=== PATIENT | female | born 1950 | race Caucasian/White ===

== ENCOUNTER 2018-05-20 16:47 | Emergency (ER) | payer MEDICARE, BC ==
[~2018-05-20] VITALS: Ht 175.3 cm; Wt 69.4 kg
[2018-05-20 18:18] VITALS: BP 127/79
== END 2018-05-20 18:32 | disposition home or self-care (01) ==
LOC: FSED 16:47
DX: R30.0 Dysuria (principal); N30.91 Cystitis, unspecified with hematuria; N23 Unspecified renal colic
CPT/HCPCS: 74176; 80053; 81003; 85025; 87040; 87086; 87186; 99284

== ENCOUNTER 2018-11-12 13:15 | Emergency (ER) | payer MEDICARE ==
[~2018-11-12] VITALS: Ht 175.3 cm; Wt 68.9 kg
--- OUTSIDE RECORDS SUMMARY | 2018-11-12 13:19 | XMS REPORT | Clinical Summary ---
Author Author [employer] Organization [employer] Address Unknown Phone Unavailable Care Team Providers Care Toy Stuffer Name Role Phone Asked, No Pcp PCP Unavailable Allergies No Known Allergies Medications End Date Status Medication Sig Dispensed Refills Start Date Active aspirin (ECOTRIN) 81 MG Take 81 mg by 0 enteric coated tablet mouth daily. Active Problems Problem Noted Date Chest pain at rest 06/29/2018 Encounters Care Team Description Date Type Specialty Anne Gandhi MA 07/04/2018 Telephone Internal Medicine Js Larson 06/30/2018 Orders Only Procedural Cardiology Anthony Ellis MD Janjua, Ejaz, Chest pain at rest (Primary Dx) 06/29/2018 Emergency General Internal Medicine - 06/30/2018 after 11/11/2017 Family History Medical History Relation Name Comments Liver cancer Father Relation Name Status Comments Father Social History Date Tobacco Use Types Packs/Day Years Used Never Smoker Smokeless Tobacco: Never Used Alcohol Use Drinks/Week oz/Week Comments No Sex Assigned at Date Recorded Not on file Industry Job Start Date Occupation Not on file Not on file Not on file Travel End Travel History Travel Start No recent travel history available. Last Filed Vital Signs Time Taken Vital Sign Reading 06/30/2018 12:45 PM CDT Blood Pressure 100/56 06/30/2018 12:45 PM CDT Pulse 87 06/30/2018 12:45 PM CDT Temperature 35.2 C (95.3 F) 06/30/2018 12:45 PM CDT Respiratory Rate 16 06/30/2018 12:45 PM CDT Oxygen Saturation 95% - Inhaled Oxygen - Concentration 06/30/2018 7:49 AM CDT Weight 67.1 kg (148 lb) 06/30/2018 7:49 AM CDT Height 175.3 cm (5' 9") 06/30/2018 7:49 AM CDT Body Mass Index 21.86 Plan of Treatment Health Maintenance Due Date Last Done Comments BREAST CANCER SCREENING 2000 COLON CANCER SCREENING 2000 SHINGLES VACCINES (1 of 2000 2) INFLUENZA VACCINE 06/18/2018 09/19/2015, 09/07/2013, 08/13/2012, Additional history exists PNEUMOCOCCAL Completed 10/18/2014, 11/18/2009 POLYSACCHARIDE VACCINE AGE 65 AND OVER PNEUMOCOCCAL-13 Completed 12/28/2015 Procedures Comments Procedure Name Priority Date/Time Associated Diagnosis US GALLBLADDER Routine 06/30/2018 6:13 PM CDT METANEPHRINES, PLASMA Routine 06/30/2018 (FREE) 1:01 PM CDT NM MYOCARDIAL PERFUSION Routine 06/30/2018 STRESS ONLY 10:55 AM CDT CV STRESS TEST NUCLEAR Routine 06/30/2018 CARDIO 10:55 AM CDT ECHOCARDIOGRAM 2D Routine 06/30/2018 COMPLETE W MMODE SPECTRAL 7:19 AM CDT COLOR DOPPLER ([id number]) HEMOGLOBIN A1C Routine 06/30/2018 5:35 AM CDT LIPID PANEL Routine 06/30/2018 5:35 AM CDT TROPONIN Routine 06/30/2018 5:35 AM CDT ZZESTIMATED GFR Routine 06/30/2018 5:35 AM CDT BASIC METABOLIC PANEL Routine 06/30/2018 5:35 AM CDT HC COMPLETE BLD COUNT Routine 06/30/2018 W/AUTO DIFF 5:35 AM CDT VMA AND HVA, URINE Routine 06/30/2018 3:18 AM CDT TROPONIN Routine 06/30/2018 2:11 AM CDT D-DIMER Routine 06/30/2018 2:00 AM CDT ECG 12-LEAD Routine 06/30/2018 1:43 AM CDT ECG 12-LEAD STAT 06/30/2018 12:09 AM CDT TROPONIN Routine 06/29/2018 11:53 PM CDT ZZESTIMATED GFR STAT 06/29/2018 9:05 PM CDT B NATRIURETIC PEPTIDE STAT 06/29/2018 9:05 PM CDT TROPONIN STAT 06/29/2018 9:05 PM CDT COMPREHENSIVE METABOLIC STAT 06/29/2018 PANEL 9:05 PM CDT HC COMPLETE BLD COUNT STAT 06/29/2018 W/AUTO DIFF 9:05 PM CDT XR CHEST 2 VW STAT 06/29/2018 5:00 PM CDT ECG 12-LEAD STAT 06/29/2018 4:34 PM CDT after 11/11/2017 Results * US Gallbladder (06/30/2018 6:13 PM CDT) Narrative Performed At EXAMINATION:US GALLBLADDER [facility] CLINICAL HISTORY:Abd painunspecified COMPARISON:None. FINDINGS: Gallbladder: The gallbladder is without evidence of calculi. The gallbladder wall is mildly thickened at 3.8 mm. There is no pericholecystic fluid. CBD: 3.7 mm Portal vein: The portal vein demonstrates normal hepatopetal flow. Vein portal vein diameter 71 6 mm Liver: The visualized portions of liver are unremarkable. IMPRESSION: Mild gallbladder wall thickening. Recent meal ingestion versus mild underlying gallbladder dyskinesia Nocholelithiasis. Normal caliber common bile duct [id number] Procedure Note Hm Interface, Radiology Results Incoming - 06/30/2018 7:39 PM CDT EXAMINATION: US GALLBLADDER CLINICAL HISTORY:Abd pain unspecified COMPARISON: None. FINDINGS: Gallbladder: The gallbladder is without evidence of calculi. The gallbladder wall is mildly thickened at 3.8 mm. There is no pericholecystic fluid. CBD: 3.7 mm Portal vein: The portal vein demonstrates normal hepatopetal flow. Vein portal vein diameter 71 6 mm Liver: The visualized portions of liver are unremarkable. IMPRESSION: Mild gallbladder wall thickening. Recent meal ingestion versus mild underlying gallbladder dyskinesia No cholelithiasis. Normal caliber common bile duct [id number] Performing Organization Address [facility]/[employer] Phone Number [facility] [address] [place] [address] * Metanephrines, plasma (free) (06/30/2018 1:01 PM CDT) Metanephrine 0.12 0.00 - 0.49 nmol/L [facility] DEPARTMENT OF PATHOLOGY AND GENOMIC MEDICINE Normetanephrine 0.64 0.00 - 0.89 nmol/L [facility] DEPARTMENT OF Comment: PATHOLOGY AND This test was developed and GENOMIC MEDICINE its performance characteristics determined by the Department of Pathology and Genomic Medicine, [facility]. Plasma free metanephrines are tested by LC-MS/MS. It has not beencleared or approved by FDA. The laboratory is regulated under CLIA as qualified to perform high-complexity testing. This test is used for clinical purposes. It should not be regarded as investigational or for research. Specimen Blood Performing Organization Address [facility] Phone Number [address] [address] PATHOLOGY AND GENOMIC MEDICINE * Cv ecg exercise stress (nuclear or echo) (06/30/2018 10:55 AM CDT) Resting HR 76 [facility] MUSE Resting BP [facility] MUSE Peak MET Achieved 1.0 [facility] MUSE Protocol Name REGADENO [facility] MUSE Time in Exercise Phase 00:01:00 H MUSE Max Systolic BP 106 [facility] MUSE Max Diastolic BP 62 [facility] MUSE Max Heart Rate 129 [facility] MUSE Max Predicted Heart Rate 153 [facility] MUSE Target HR Formula (220 - Age)*100% [facility] MUSE Test Indication chest pain [facility] MUSE Arrhy During Ex H MUSE ECG Interp Before EX [facility] MUSE ECG Interp During Ex H MUSE Ex Summary Comment [facility] MUSE Overall HR Response to [facility] MUSE Exercise Overall BP Response To [facility] MUSE Exercise Reason for Termination [facility] MUSE Stress Test Impression -Waveform interpreted in [facility] MUSE report associated with image study. No interpretation is provided as part of this Stress ECG report.-Electronically Signed By Mayra NORIEGA, Amadeo ([id number]), development editor Summer Ndiaye ([id number]) on 06/30/2018 3:37:44 PM Performing Organization Address [facility]/Zipcode Phone Number [facility] [address] [place] [address] * Myocardial perfusion (06/30/2018 10:55 AM CDT) Narrative Performed At [facility] Nuclear Cardiology and Cardiac CT [address] [id number] Myocardial Perfusion Imaging Report Stress ECG tracings are available in [employer], [employer] and [employer] All ECG interpretations are included in this report Pat.Name:BAMBI MCGRAW Pat.ID:[id number] .Date: 06/30/2018 Refer.MD:CHULA SNEED DO Exam Time: 9:27:00 AM Study Type:Myocardial Perfusion Imaging Height:69inBSA: 1.82 m2 DOBAge:1950,67Y Sex: FEMALE BP:100/64HR: 73 bpm HCT: 42.4 % Nuclear Tech:CARMINA Abreu/Annabella FISHERMT,ARRT Pat. Stat.:OutpatientRoom:[facility] Nuclear Event ID:[id number] Order ID:[id number] Reason for Study:Chest pain, unspecified* History / Clinical:Valvular heart disease,mitral valve prolapse, Kidney Stones, Endometriosis, Migrane, Abdominoplasty Procedures:Stress only Risk Factors:NONE Clinical Symptoms:Regadenoson Physical Exam:S1, S2 Surgery: Serum K+ Date,3.6/06/29/2018, Troponin I Date, 1)NEGATIVE/06/30/2018 , BUN/Creatinine Date,14/0.7/06/29/2018 Medications:Aspirin, Nitrostat SUMMARY: SCINTIGRAPHIC RESULTS Perfusion Defect Size (% LV) 0 % Total 0 % Ischemia 0 % Scar Left Ventricular Perfusion Results There is normal tracer distribution throughout the myocardium during stress. Gated SPECT Results The post-stress left ventricular ejection fraction is 84 % with normal regional wall motion and left ventricular thickening.Left ventricular end-diastolic volume is 56 ml; end-systolic volume is09 ml. The left ventricle is of normal size at stress.The right ventricle is of normal size with normal wall motion. Conclusion Normal regadenoson Tc-99m tetrofosmin myocardial perfusion study. The left ventricular ejection fraction is normal. Comments Patients with a normal stress myocardial perfusion study have a low (< 1%) annual risk of cardiac or nonfatal myocardial infarction. Study Quality/Artifacts The study quality is good. The mild reduction in apical-septal wall counts is probably due to breast attenuation artifact rather than coronary artery disease that resolves with prone images. Comparison to Previous Study None available. STRESS: Baseline Vital Signs:Intervention: Regadenoson 0.4mg/5ml IV over 10 seconds followed by radiotracer injection and 5ml saline flush ECG: Normal Sinus Rhythm, Nonspecific ST/T wave abnormality HR:72 BP:100/64 Stress Test Results: Target HR: 130 Symptoms and Complications: Arrhythmias: None Terminated: As per Regadenoson protocol Symptoms:Chest tightness, Palpitations, Shortness of breath, Nausea, Headache, Left arm pain Complications: None Conclusions: Normal heart rate response to pharmacological stress, Normal blood pressure response to pharmacological stress Stress ECG Interp: No ischemic ST segment change occurred with stress. Signed 06/30/2018 12:00 PM Amadeo Nunez MD Procedure Note Interface, Radiology Results In - 06/30/2018 12:01 PM CDT Nuclear Cardiology and Cardiac CT [address] [place] [address] Myocardial Perfusion Imaging Report Stress ECG tracings are available in [employer], [employer] and [employer] All ECG interpretations are included in this report Pat.Name: EFRAOLYA BAMBISejal LOPEZ Pat.ID: [id number] .Date: 06/30/2018 Refer.MD: CHULA SNEED DO Exam Time: 9:27:00 AM Study Type:Myocardial Perfusion Imaging Height: 69in BSA: 1.82 m2 Age: 1 1950,67Y Sex: FEMALE BP: 100/64 HR: 73 bpm HCT: 42.4 % Nuclear Tech:Silver Carlton [facility]/Annabella Kee [facility],ARRT Pat. Stat.:Outpatient Room: [id number] Nuclear Event ID:[id number] Order ID: [id number] Reason for Study:Chest pain, unspecified* History / Clinical:Valvular heart disease, mitral valve prolapse, Kidney Stones, Endometriosis, Migrane, Abdominoplasty Procedures:Stress only Risk Factors:NONE Clinical Symptoms:Regadenoson Physical Exam:S1, S2 Surgery: Serum K+ Date, 3.606/29/2018, Troponin I Date, 1)NEGATIVE06/30/2018 , BUN/Creatinine Date, 14/0.706/29/2018 Medications:Aspirin, Nitrostat SUMMARY: SCINTIGRAPHIC RESULTS Perfusion Defect Size (% LV) 0 % Total 0 % Ischemia 0 % Scar Left Ventricular Perfusion Results There is normal tracer distribution throughout the myocardium during stress. Gated SPECT Results The post-stress left ventricular ejection fraction is 84 % with normal regional wall motion and left ventricular thickening. Left ventricular end-diastolic volume is 56 ml; end-systolic volume is 09 ml. The left ventricle is of normal size at stress. The right ventricle is of normal size with normal wall motion. Conclusion Normal regadenoson Tc-99m tetrofosmin myocardial perfusion study. The left ventricular ejection fraction is normal. Comments Patients with a normal stress myocardial perfusion study have a low (< 1%) annual risk of cardiac or nonfatal myocardial infarction. Study Quality/Artifacts The study quality is good. The mild reduction in apical-septal wall counts is probably due to breast attenuation artifact rather than coronary artery disease that resolves with prone images. Comparison to Previous Study None available. STRESS: Baseline Vital Signs: Intervention: Regadenoson 0.4mg/5ml IV over 10 seconds followed by radiotracer injection and 5ml saline flush ECG: Normal Sinus Rhythm, Nonspecific ST/T wave abnormality HR: 72 BP: 100/64 Stress Test Results: Target HR: 130 Symptoms and Complications: Arrhythmias: None Terminated: As per Regadenoson protocol Symptoms: Chest tightness, Palpitations, Shortness of breath, Nausea, Headache, Left arm pain Complications: None Conclusions: Normal heart rate response to pharmacological stress, Normal blood pressure response to pharmacological stress Stress ECG Interp: No ischemic ST segment change occurred with stress. Signed 06/30/2018 12:00 PM Amadeo Nunez MD Performing Organization Address City/State/Zipcode Phone Number [facility] [address] [place] [address] * Echocardiogram complete w contrast and 3D if needed (06/30/2018 7:19 AM CDT) Narrative Performed At [facility] Echocardiography Report [address] [place] [address] Pat.Name:BAMBI MCGRAW Pat.ID:[id number] .Date: 06/30/2018 Refer.MD:CHULA SNEED MD Exam Time: 6:50:00 AMStudy Type:Routine Echo Height:69inWeight:147lb BSA: 1.81 m2 DOBAge:1950,67Y Sex: FEMALEBP:98/57 HR:82 bpmSonogrphr: Carline Carpio RDCS Pat. Stat.:Inpatient Room:[address] Study Status:Final Echo Event ID:[id number] Order ID:[id number] Reason for Study:chest pain, pericardial History / Clinical:Chest Pain at rest Procedures:2D Echo, Colorflow Doppler Race:C SUMMARY: LV EF is normal. Overall wall motion is normal. RV systolic function is normal. Ascending aorta appears enlarged on the limited views obtained of it. Recommend further evaluation with CTA or MRA. FINDINGS: LV: LV size is normal. LV EF is normal. Overall wall motion is normal.Estimated EF is 65-69% RV: RV size is normal. RV systolic function is normal. RV wall motionis normal. LA: LA size is normal. RA: RA size is normal. AO: Aortic root diameter is normal. HENRY: No pericardial effusion. There is an anterior space consistentwith a prominent epicardial fat pad. IAS:Interatrial septum is redundant. AV: No structural AV abnormalities noted. MV: No structural MV abnormalities noted. A trace of mitral regurgitation. PV: Pulmonic valve not well seen. TV: No structural TV abnormalities noted. Mild tricuspid regurgitation Petit: LV relaxation is impaired. LV filling pressure is normal. Other:Estimated PA systolic pressure is 26 mmHg, assuming a mean RAPof 5 mmHg. MEASUREMENTS: 2D Parasternal Long [place] LVOT 1.7 cmLA Ds2.8 cm LVIDd3.6 cmIndex2 cm/m Ao Rtd 3.5 cm Index1.9 cm/m LVIDs2.2 cmLV Whhc857.3 g(87-129) LV%fs 37.4 % LVM Index 64.8 g/m2 IVSd 1.1 cmRWT0.6 LVPWd1.1 cm LA Sng Plane LA Area8 cm2(8.8-23.4) LA Vol14.2 ml Index7.9 ml/m LA LngAx 3.3 cm RA Sng Plane RA Area 12.1 cm2(8.3-19.5) RA Vol24.4 ml Index13.5 ml/m RA LngAx 5 cm Signed 06/30/2018 08:04 PM Marti Dietz M.D. Procedure Note Interface, Radiology Results In - 06/30/2018 8:04 PM CDT Echocardiography Report [address] [place] [address] Pat.Name: BAMBI MCGRAW Pat.ID: [id number] St.Date: 06/30/2018 Refer.MD: CHULA SNEED MD Exam Time: 6:50:00 AM Study Type:Routine Echo Height: 69in Weight: 147lb BSA: 1.81 m2 Age: 1 1950,67Y Sex: FEMALE BP: 98/57 HR: 82 bpm Sonogrphr: Carline Carpio RDCS Pat. Stat.:Inpatient Room: [address] Study Status:Final Echo Event ID:[id number] Order ID: [id number] Reason for Study:chest pain, pericardial History / Clinical:Chest Pain at rest Procedures:2D Echo, Colorflow Doppler Race: C SUMMARY: LV EF is normal. Overall wall motion is normal. RV systolic function is normal. Ascending aorta appears enlarged on the limited views obtained of it. Recommend further evaluation with CTA or MRA. FINDINGS: LV: LV size is normal. LV EF is normal. Overall wall motion is normal. Estimated EF is 65-69% RV: RV size is normal. RV systolic function is normal. RV wall motion is normal. LA: LA size is normal. RA: RA size is normal. AO: Aortic root diameter is normal. HENRY: No pericardial effusion. There is an anterior space consistent with a prominent epicardial fat pad. IAS: Interatrial septum is redundant. AV: No structural AV abnormalities noted. MV: No structural MV abnormalities noted. A trace of mitral regurgitation. PV: Pulmonic valve not well seen. TV: No structural TV abnormalities noted. Mild tricuspid regurgitation Petit: LV relaxation is impaired. LV filling pressure is normal. Other: Estimated PA systolic pressure is 26 mmHg, assuming a mean RAP of 5 mmHg. MEASUREMENTS: 2D Parasternal Long [place] LVOT 1.7 cm LA Ds 2.8 cm LVIDd 3.6 cm Index 2 cm/m Ao Rtd 3.5 cm Index 1.9 cm/m LVIDs 2.2 cm LV Mass 117.3 g (87-129) LV%fs 37.4 % LVM Index 64.8 g/m2 IVSd 1.1 cm RWT 0.6 LVPWd 1.1 cm LA Sng Plane LA Area 8 cm2 (8.8-23.4) LA Vol 14.2 ml Index 7.9 ml/m LA LngAx 3.3 cm RA Sng Plane RA Area 12.1 cm2 (8.3-19.5) RA Vol 24.4 ml Index 13.5 ml/m RA LngAx 5 cm Signed 06/30/2018 08:04 PM Marti Dietz M.D. Performing Organization Address City/State/Zipcode Phone Number [facility] [address] [place] [address] * Estimated GFR (06/30/2018 5:35 AM CDT) Only the most recent of 2 results within the time period is included. GFR Non Af Amer 83 mL/min/1.73 m2 [facility] DEPARTMENT OF PATHOLOGY AND GENOMIC MEDICINE GFR Af Amer >90 mL/min/1.73 m2 [facility] DEPARTMENT OF Comment: PATHOLOGY AND Chronic kidney disease: <60 GENOMIC MEDICINE mL/min/1.73m2 Kidney failure: <15 mL/min/1.73m2 The estimated GFR is calculated from the IDMS-traceable Modification of Diet in Renal Disease Equation. The accuracy of the calculation is poor when the creatinine is normal. Calculated values >90 mL/min/1.73m2 are not reported. This equation has not been validated in children (<18 years), women, the elderly (>70 years), or ethnic groups other than Caucasians and Americans. Specimen Plasma specimen Performing Organization Address City/State/[place] [address] PATHOLOGY AND GENOMIC MEDICINE * Troponin (06/30/2018 5:35 AM CDT) Only the most recent of 4 results within the time period is included. Troponin <0.30 0.00 - 0.30 ng/mL [facility] DEPARTMENT OF Comment: PATHOLOGY AND 0.30 - 1.49 GENOMIC MEDICINE ng/mlMay indicate increased risk of acute coronary syndrome. >=1.5 ng/ml Consistent with acute myocardial infarction. The diagnostic value of a single normal or non-diagnostic result is questionable.Serial samples at 2-6 hour intervals are required to rule out acute myocardial injury. Specimen Plasma specimen Performing Organization Address City/[facility] [place] [address] PATHOLOGY AND GENOMIC MEDICINE * CBC with platelet and differential (06/30/2018 5:35 AM CDT) Only the most recent of 2 results within the time period is included. WBC 7.94 4.50 - 11.00 k/uL [facility] DEPARTMENT OF PATHOLOGY AND GENOMIC MEDICINE RBC 4.63 4.20 - 5.50 m/uL [facility] DEPARTMENT OF PATHOLOGY AND GENOMIC MEDICINE HGB 14.5 12.0 - 16.0 g/dL [facility] DEPARTMENT OF PATHOLOGY AND GENOMIC MEDICINE HCT 42.4 37.0 - 47.0 % [facility] DEPARTMENT OF PATHOLOGY AND GENOMIC MEDICINE MCV 91.6 82.0 - 100.0 fL [facility] DEPARTMENT OF PATHOLOGY AND GENOMIC MEDICINE MCH 31.3 27.0 - 34.0 pg [facility] DEPARTMENT OF PATHOLOGY AND GENOMIC MEDICINE MCHC 34.2 31.0 - 37.0 g/dL [facility] DEPARTMENT OF PATHOLOGY AND GENOMIC MEDICINE RDW - SD 41.9 37.0 - 55.0 fL [facility] DEPARTMENT OF PATHOLOGY AND GENOMIC MEDICINE MPV 10.8 8.8 - 13.2 fL [facility] DEPARTMENT OF PATHOLOGY AND GENOMIC MEDICINE Platelet count 281 150 - 400 k/uL [facility] DEPARTMENT OF PATHOLOGY AND GENOMIC MEDICINE Nucleated RBC 0.00 /100 WBC [facility] DEPARTMENT OF PATHOLOGY AND GENOMIC MEDICINE Neutrophils 66.9 39.0 - 69.0 % [facility] DEPARTMENT OF PATHOLOGY AND GENOMIC MEDICINE Lymphocytes 22.9 (L) 25.0 - 45.0 % [facility] DEPARTMENT OF PATHOLOGY AND GENOMIC MEDICINE Monocytes 8.7 0.0 - 10.0 % [facility] DEPARTMENT OF PATHOLOGY AND GENOMIC MEDICINE Eosinophils 0.8 0.0 - 5.0 % [facility] DEPARTMENT OF PATHOLOGY AND GENOMIC MEDICINE Basophils 0.3 0.0 - 1.0 % [facility] DEPARTMENT OF PATHOLOGY AND GENOMIC MEDICINE Immature granulocytes 0.4Comment: "Immature 0.0 - 1.0 % [facility] DEPARTMENT OF granulocytes" (promyelocytes, PATHOLOGY AND myelocytes, metamyelocytes) [facility] Specimen Blood Performing Organization Address City/State/Zipcode Phone Number [place] [phone] [place] [phone] PATHOLOGY AND GENOMIC MEDICINE * Hemoglobin A1c (06/30/2018 5:35 AM CDT) Hemoglobin A1C 5.3 4.0 - 5.6 % [facility] DEPARTMENT OF Comment: PATHOLOGY AND HbA1c cutoffs for diagnosing GENOMIC MEDICINE diabetes: 4.0% - 5.6%=normal 5.7% - 6.4%=increased risk for diabetes (prediabetes) >=6.5%=diabetes Goals for glycemic control (ADA 2016) < 7.0%Target for non adults with diabetes. More or less stringent targets may be appropriate for individual patients. <7.5% Target for Children and adolescents with type 1 diabetes. Narrative Performed At Unable to perform testing, specimen is HEMOLYZED.Recollect [facility] DEPARTMENT OF requested for _K__ (tests). PATHOLOGY AND ADALI SANTAMARIA/Kailash NOTIFIED BY LM1 AT06/30/201809:08 GENOMIC MEDICINE Performing Organization Address City/State/Zipcode Phone Number [facility] DEPARTMENT OF [address] [place] [address] PATHOLOGY AND GENOMIC MEDICINE * Lipid panel (06/30/2018 5:35 AM CDT) Cholesterol 200 (H) <200 mg/dL [facility] DEPARTMENT OF PATHOLOGY AND GENOMIC MEDICINE Triglycerides 139 <150 mg/dL [facility] DEPARTMENT OF PATHOLOGY AND GENOMIC MEDICINE HDL cholesterol 82 >40 mg/dL [facility] DEPARTMENT OF PATHOLOGY AND GENOMIC MEDICINE LDL cholesterol 103 (H)Comment: Result <100 mg/dL [facility] DEPARTMENT OF obtained by direct LDL PATHOLOGY AND measurement GENOMIC MEDICINE Lipid panel SeeBelow [facility] DEPARTMENT OF interpretation Comment: PATHOLOGY AND Total Cholesterol GENOMIC MEDICINE (mg/dL) <200 Desirable 200-239Borderline -high >=240High Triglycerides (mg/dL) <150 Normal 150-199Borderline -high 200-499High >=500Very high HDL Cholesterol (mg/dL) <40Low (male) <40Low (female) LDL Cholesterol (mg/dL) <100 Optimal 100-129Near or above optimal 130-159Borderline -high 160-189High >=190Very high Risk Catergories that modify LDL goals. Risk Catergories LDL goal (mg/dL) CHD and CHD risk equivalent<100 (10-year risk >20%) Multiple (2+) risk factors <130 (10-year risk=<20%) 0-1 risk factors <160 (<10-year risk) Defining levels of lipids in metabolic syndrome Triglycerides >=150 mg/dL HDL Cholesterol Men <40 mg/dL Women <40 mg/dL Non-HDL cholesterol is a second target for therapy in persons with high triglycerides (>=200 mg/dL) Specimen Plasma specimen Performing Organization Address City/State/Zipcode Phone Number [facility] DEPARTMENT OF [address] [place] [address] PATHOLOGY AND GENOMIC MEDICINE * Basic metabolic panel (06/30/2018 5:35 AM CDT) Sodium 138 135 - 148 mEq/L [facility] DEPARTMENT OF PATHOLOGY AND GENOMIC MEDICINE Potassium SEE COMMENT 3.5 - 5.0 mEq/L [facility] DEPARTMENT OF Comment: PATHOLOGY AND Footnote--------- GENOMIC MEDICINE Unable to perform testing, specimen is HEMOLYZED.Recollect requested for _K__ (tests). Chloride 96 (L) 98 - 112 mEq/L [facility] DEPARTMENT OF PATHOLOGY AND GENOMIC MEDICINE CO2 25 24 - 31 mEq/L [facility] DEPARTMENT OF PATHOLOGY AND GENOMIC MEDICINE Anion gap 17@ANIO (H) 7 - 15 mEq/L [facility] DEPARTMENT OF PATHOLOGY AND GENOMIC MEDICINE BUN 17 8 - 23 mg/dL [facility] DEPARTMENT OF PATHOLOGY AND GENOMIC MEDICINE Creatinine 0.7 0.5 - 0.9 mg/dL [facility] DEPARTMENT OF PATHOLOGY AND GENOMIC MEDICINE Glucose 92 65 - 99 mg/dL [facility] DEPARTMENT OF PATHOLOGY AND GENOMIC MEDICINE Calcium 9.7 8.8 - 10.2 mg/dL [facility] DEPARTMENT OF PATHOLOGY AND GENOMIC MEDICINE Specimen Plasma specimen Performing Organization Address City/State/Zipcode Phone Number [facility] DEPARTMENT OF [address] [place] [address] PATHOLOGY AND GENOMIC MEDICINE * VMA and HVA, urine (06/30/2018 3:18 AM CDT) Collection length Random hr [facility] Comment: Corrected result; previously reported as RANDOM on 06/30/2018 at 09:00 by V/AUT Total volume, urine Random mL [facility] Comment: Corrected result; previously reported as RANDOM on 06/30/2018 at 09:00 by V/AUT VMA, urine Not Applicable 0.0 - 7.0 mg/d [facility] HVA, urine Not Applicable 0.0 - 15.0 mg/d [facility] Creatinine, urine mg/dL 37 mg/dL [facility] Creatinine, urine mg/day Not Applicable 500 - 1400 mg/d [facility] VMA and HVA See Note [facility] interpretation Comment: INTERPRETIVE INFORMATION: VMA and HVA, Urine Vanillylmandelic acid (VMA) and homovanillic acid (HVA) results are expressed as a ratio to creatinine excretion (mg/g [employer]). VMA and HVA mass per day (mg/d) is not reported on specimens from patients younger than 18 years of age, for random specimens, urine collection periods other than 24 hours, or for urine volumes less than 400 mL/d. No reference interval is available for results reported in units of mg/L. Slight or moderate increases in catecholamine metabolites may be due to extreme anxiety, essential hypertension, intense physical exercise, or drug interactions. Significant increase of one or more catecholamine metabolites (several times the upper reference limit) is associated with an increased probability of a secreting neuroendocrine tumor. Test developed and characteristics determined by [employer]. See Compliance Statement B: [facility] VMA, urine 2 0 - 6 mg/gCR [facility] Comment: REFERENCE INTERVAL: VMA, Urine mg/g [employer]TER Access complete set of age- and/or gender-specific reference intervals for this test in the [facility] Test Directory ([facility]). HVA, urine 2 0 - 8 mg/gCR [facility] Comment: REFERENCE INTERVAL: HVA, Urine mg/g [employer]T [employer]TER Access complete set of age- and/or gender-specific reference intervals for this test in the [facility] Test Directory ([facility]). Performed by [facility], [address] [place] [address] [email or web address], Jan Wilson MD - Lab. Director Specimen Urine Performing Organization Address [facility]/Zipcode Phone Number [facility] [address] [place] [address] * D-dimer (06/30/2018 2:00 AM CDT) D-dimer 0.31 0.00 - 0.40 ug/mL FEU [facility] DEPARTMENT OF Comment: PATHOLOGY AND Units are ug/ml [employer] GENOMIC MEDICINE Equivalent Unit. When combined with low clinical probability, D-dimer results of less than 0.5 ug/ml FEU have a good negativepredictive value in excluding PE or DVT. For D-dimer results greater than 0.5ug/ml FEU further testing is indicated if PE or DVT is suspectedclinically. Elevated D-dimer results have been reported in DVT, PE, and DIC cases and may indicate the presence of a clot. D-dimer results may be elevated due to old age, , inflammatory diseases, trauma, post-operative states, sepsis, and malignancies. Specimen Blood Performing Organization Address [facility] Phone Number [facility] DEPARTMENT OF [address] [place] [address] PATHOLOGY AND GENOMIC MEDICINE * ECG 12 lead (06/30/2018 1:43 AM CDT) Only the most recent of 3 results within the time period is included. Ventricular rate 68 [facility] Atrial rate 68 [facility] W[place] interval 166 [facility] QRSD interval 82 [facility] QT interval 408 [facility] QTC interval 433 [facility] P axis 1 37 [facility] QRS axis 1 29 [facility] T wave axis 26 [facility] EKG impression Normal sinus rhythm-RSR' or QR [facility] pattern in V1 suggests right ventricular conduction delay-T wave abnormality, consider anterior ischemia-Abnormal ECG-In automated comparison with ECG of 30-JUN-2018 00:09,-T wave inversion more evident in Anterior leads- Performing Organization Address City/[facility]/Zipcode Phone Number [facility] MUSE [address] [place] [address] * B natriuretic peptide (06/29/2018 9:05 PM CDT) BNP 12 0 - 100 pg/mL [facility] DEPARTMENT OF PATHOLOGY AND GENOMIC MEDICINE Specimen Blood Performing Organization Address City/[facility] Phone Number [address] [address] PATHOLOGY AND GENOMIC MEDICINE * Comprehensive metabolic panel (06/29/2018 9:05 PM CDT) Sodium 136 135 - 148 mEq/L [facility] DEPARTMENT OF PATHOLOGY AND GENOMIC MEDICINE Potassium 3.6 3.5 - 5.0 mEq/L [facility] DEPARTMENT OF PATHOLOGY AND GENOMIC MEDICINE Chloride 93 (L) 98 - 112 mEq/L [facility] DEPARTMENT OF PATHOLOGY AND GENOMIC MEDICINE CO2 26 24 - 31 mEq/L [facility] DEPARTMENT OF PATHOLOGY AND GENOMIC MEDICINE Anion gap 17@ANIO (H) 7 - 15 mEq/L [facility] DEPARTMENT OF PATHOLOGY AND GENOMIC MEDICINE BUN 14 8 - 23 mg/dL [facility] DEPARTMENT OF PATHOLOGY AND GENOMIC MEDICINE Creatinine 0.7 0.5 - 0.9 mg/dL [facility] DEPARTMENT OF PATHOLOGY AND GENOMIC MEDICINE Glucose 114 (H) 65 - 99 mg/dL [facility] DEPARTMENT OF PATHOLOGY AND GENOMIC MEDICINE Calcium 10.4 (H) 8.8 - 10.2 mg/dL [facility] DEPARTMENT OF PATHOLOGY AND GENOMIC MEDICINE Protein 8.2 6.3 - 8.3 g/dL [facility] DEPARTMENT OF Comment: PATHOLOGY AND [place] GENOMIC MEDICINE 4.6-7.0 g/dL 1 week 4.4-7.6 g/dL 7 months-1year 5.1-7.3 g/dL 1-2 years5.6-7 .5 g/dL >3 years6.0-8 .0 g/dL 18-150 6.3-8.3 g/dL Albumin 4.2 3.5 - 5.0 g/dL [facility] DEPARTMENT OF PATHOLOGY AND GENOMIC MEDICINE A/G ratio 1.0 0.7 - 3.8 [facility] DEPARTMENT OF PATHOLOGY AND GENOMIC MEDICINE Alkaline phosphatase 81 35 - 104 U/L [facility] DEPARTMENT OF PATHOLOGY AND GENOMIC MEDICINE AST 16 10 - 35 U/L [facility] DEPARTMENT OF PATHOLOGY AND GENOMIC MEDICINE ALT 19 5 - 50 U/L [facility] DEPARTMENT OF PATHOLOGY AND GENOMIC MEDICINE Total bilirubin 0.3 0.0 - 1.2 mg/dL [facility] DEPARTMENT OF PATHOLOGY AND GENOMIC MEDICINE Specimen Plasma specimen Performing Organization Address City/State/Zipcode Phone Number [facility] DEPARTMENT OF [address] [place] [address] PATHOLOGY AND GENOMIC MEDICINE * XR Chest 2 Vw (06/29/2018 5:00 PM CDT) Narrative Performed At EXAMINATION:XR CHEST 2 VW RADIANT CLINICAL HISTORY:Chest painACS suspected COMPARISON:None Technique:PA and lateral chest radiographs are obtained. IMPRESSION: 1.The lungs are clear. 2.There is no pleural fluid or pneumothorax. 3.The heart size and mediastinal contours are within normal limits. 4.There is no significant skeletal abnormality. 5.Bilateral breast implants are noted. [id number] Procedure Note Interface, Radiology Results Incoming - 06/29/2018 5:11 PM CDT EXAMINATION: XR CHEST 2 VW CLINICAL HISTORY: Chest pain ACS suspected COMPARISON: None Technique: PA and lateral chest radiographs are obtained. IMPRESSION: 1. The lungs are clear. 2. There is no pleural fluid or pneumothorax. 3. The heart size and mediastinal contours are within normal limits. 4. There is no significant skeletal abnormality. 5. Bilateral breast implants are noted. [id number] Performing Organization Address City/State/Zipcode Phone Number [facility] [address] [place] [address] after 11/11/2017 Insurance Payer Benefit Subscriber ID Type Phone Address Plan / Group MEDICARE MEDICARE xxxxxxxxxx Medicare [place], [place] PART A AND B BCBS BCBS xxxxxxxxxxxx Indemnity PAR/TRAD PLAN Advance Directives Patient has advance care planning documents on file. For more information, aleksandar marie contact: Abram Thomas [address] [place] [address]
--- OUTSIDE RECORDS SUMMARY | 2018-11-12 13:19 | XMS REPORT ---
Author Author [facility] Address Unknown Phone Unavailable Care Team Providers Care Dimension Specification Inspector Name Role Phone Unavailable Unavailable Problems This patient has no known problems. Allergies, Adverse Reactions, Alerts This patient has no known allergies or adverse reactions. Medications This patient has no known medications.
[2018-11-12] MEDS ORDERED: KETOROLAC TROMETHAMINE 30 MG/ML VIAL IV STA (14:21)
[2018-11-12] MEDS ORDERED: PROMETHAZINE 25MG/ NS 50ML (IV) IV ONE (14:30)
[2018-11-12 15:19] VITALS: BP 158/81
== END 2018-11-12 15:26 | disposition home or self-care (01) ==
LOC: FSED 13:15
DX: G43.109 Migraine with aura, not intractable, without status migrainosus (principal)
CPT/HCPCS: 99283; J1885; J2550

== ENCOUNTER 2021-07-20 08:58 | Emergency (ER) | payer MEDICARE, BC ==
[~2021-07-20] VITALS: Ht 175.3 cm; Wt 69.9 kg
[~2021-07-20 08:58] MED LIST: TYLENOL WITH C1 EACH PO
[2021-07-20] MEDS ORDERED: DIPHENHYDRAMINE HCL INJ 50 MG/ML VIAL IV ONE (09:18)
[2021-07-20] MEDS ORDERED: METOCLOPRAMIDE HCL 10 MG/2ML VIAL IV ONE (09:18)
[2021-07-20] MEDS ORDERED: KETOROLAC TROMETHAMINE 30 MG/ML VIAL IV ONE (09:18)
[2021-07-20] MEDS ORDERED: SODIUM CHLORIDE 0.9% 1000ML 1,000 ML IV STA (09:18)
[2021-07-20] MEDS ORDERED: SODIUM CHLORIDE 0.9% 1000ML 1,000 ML ONE (09:35)
[2021-07-20] MEDS ORDERED: FIORICET 50-301 EACH PO (10:45)
== END 2021-07-20 10:51 | disposition home or self-care (01) ==
LOC: FSED 09:10
DX: G44.52 New daily persistent headache (NDPH) (principal)
CPT/HCPCS: 99283; J1200; J1885; J2765; J7030